=== PATIENT | female | born 1970 | race Caucasian/White ===

== ENCOUNTER 2024-03-15 14:45 | Emergency (ER) | payer OTHER, SELFPAY ==
[2024-03-15 14:51] VITALS: BP 161/86
[2024-03-15 15:06] VITALS: BMI 25.5
[2024-03-15 15:23] LABS: Hematocrit 37.4 % (37.0-47.0); Hemoglobin 13.4 g/dL (12.0-16.0); Mean Corp Hgb Conc. 35.8 g/dL (33.0-37.0); Mean Corpuscular Hgb 31.9 pg (27.0-31.0); Mean Platelet Volume 9.6 fL (7.4-10.4); Platelet Count 229 10^3/uL (130-400); Red Cell Dist. Width 12.1 % (11.5-14.5); White Blood Cell Count 5.8 10^3/uL (4.8-10.8)
[2024-03-15 15:41] LABS: ALT (SGPT) 16 U/L (0-35); AST (SGOT) 24 U/L (14-36); Albumin 4.4 g/dl (3.5-5.0); Alkaline Phosphatase 57 U/L (38-126); Blood Urea Nitrogen 20 mg/dl (7-17); Calcium 9.5 mg/dl (8.4-10.2); Carbon Dioxide 24 mmol/L (22-30); Chloride 104 mmol/L (98-107); Estimated Creatinine Clearance 62 ml/min; Glucose 115 mg/dl (70-99); Potassium 3.7 mmol/L (3.5-5.1); Sodium 138 mmol/L (135-145); Total Bilirubin 0.5 mg/dl (0.2-1.3); Total Protein 6.9 g/dl (6.3-8.2); eGFR > 60.00
--- NOTE | 2024-03-15 15:42 | ED.CVA ---
History of Present Illness
General
Chief Complaint: CVA/TIA Symptoms
Source: patient
Exam Limitations: none
Time Seen by Provider: 03/15/24 15:02
Onset of Stroke Symptoms
Onset of symptoms known: Yes
Date of onset of symptoms: 03/15/24
Time pt last seen normal is known: Yes
Date last time pt seen normal: 03/15/24
Travel History
Have you had any contact with someone who has COVID-19?: No
Do you have any symptoms of coronavirus? Fever > 100 degrees, chills, cough, shortness of breath, sore throat, loss of taste or smell, muscle aches, or headache?: No
History of Present Illness
History of Present Illness:
Patient presents emergency department with an episode of paresthesias in all 4 extremities. She has had 2 prior episodes in September and October. She followed up with a neurologist and had an MRI and an EEG which were unremarkable according to
the patient. She was diagnosed with possible essential tremor and prescribed propranolol. She took 1 today which seemed to help her symptoms.
Past History
Past History
ED Past Medical History: None
ED Past Surgical History: Cholecystectomy and
Social History
Tobacco: Non-smoker
Alcohol: None
Personal:
Living: with family
Employment: Employed
Family History
Family History: Other (Noncontributory)
Phy Exam
Physical Exam
Physical Exam:
GENERAL APPEARANCE: NAD, well developed/ well nourished
EYES lids/conjunctiva normal
EARS/NOSE/THROAT Mucous membranes moist, uvula midline without oral pharyngeal erythema, exudate or swelling
HEAD/NECK normocephalic atraumatic, neck is supple.
RESPIRATORY respiratory effort normal, speaks in full sentences, no accessory muscle use. Lungs clear to auscultation without rhonchi, wheezes, rales
CARDIAC Regular rate and rhythm, no edema.
ABDOMINAL Soft, ND/NT. No pulsatile masses on exam, rebound tenderness, Thurston sign or pain over Mcburney's point.
MUSCLES/EXTREMITIES No abnormal range of motion, no swelling.
SKIN Warm, pink and dry. No rashes
NEUROLOGICAL Speech is clear and appropriate. Normal level of consciousness. 5/5 strength in all extremities, occasional jerking motions in upper extremities, no tremor noted, no rigidity or hypertonia
PSYCH Normal mood and affect. Judgement/competence is appropriate
Course
Orders/Labs/Results
Orders:
Orders
03/15/24 15:08
EKG [Electrocardiogram (*1)] Urgent
Reason for Study: Other
Other Reason for Exam: cva/tia
03/15/24 15:09
EKG- Treatment ONCE
03/15/24 15:14
Complete Blood Count/No Diff Urgent
Comprehensive Metabolic Panel Urgent
03/15/24 15:48
CT Head W/o Iv Contrast Urgent
Comment:
Reason For Exam: parasthesias
Abnormal Lab Results
03/15/24
15:14
MCH 31.9 H pg
(27.0-31.0)
BUN 20 H mg/dl
(7-17)
Glucose 115 H mg/dl
(70-99)
03/15/24 15:14
03/15/24 15:14
Vital Signs
Initial and Last Documented VS:
Initial Vital Signs
Temp Pulse Resp BP Pulse Ox
97.4 F 72 17 161/86 99
03/15/24 14:51 03/15/24 14:51 03/15/24 14:51 03/15/24 14:51 03/15/24 14:51
Last Documented Vital Signs
Temp Pulse Resp BP Pulse Ox
97.4 F 72 17 161/86 99
03/15/24 14:51 03/15/24 14:51 03/15/24 14:51 03/15/24 14:51 03/15/24 14:51
*Critical Care Note
Total Time (30-74mins, 75-104mins- exclusive of procedures): Not Applicable
ED Attending Note
ED Attending Note
ED Attending Note:
This is a discussed case with on-call neurologist Dr. Garza. Given symptoms have resolved at this time with negative workup in the ER as well as negative MRI and EEG as an outpatient, no indication for admission and further workup at this time.
Recommend patient follows up as an outpatient for continued management and workup.
-
Portions of this chart may have been created with voice recognition software.� Occasional wrong word or��sound alike� substitutions may have occurred due to the inherent limitations of voice recognition software.
Discharge Plan
Departure
Patient Disposition: Home (Routine Discharge)
Date of Disposition: 03/15/24
Time of Disposition: 18:21
Patient with high blood pressure during this ER visit?: Yes
Condition: Good
Discharge Problem:
parasthesia
Instructions: Paresthesia (DC)
Prescriptions:
No Action
levofloxacin [Levaquin] 500 MG tablet
500 mg PO DAILY Qty: 6 0RF
metronidazole 500 MG tablet
500 mg PO TID Qty: 20 0RF
diphenoxylate-atropine 1 TABLET tablet
1 tab PO Q6HPRN PRN (Reason: diarrhea) Qty: 12 0RF
ondansetron 4 MG tablet,disintegrating
4 mg PO QIDPRN PRN (Reason: nausea/vomiting) Qty: 20 0RF
Referrals:
Dhruv Garza MD [Active] -
Amber Myers CRNP [Family Provider] -
Interventions
Interventions:
*Risk Screen - Suicide Last Done: 03/15/24 17:36
*General Assessment Last Done: 03/15/24 15:07
*Neglect/Abuse Screening Last Done: 03/15/24 17:36
*ED COVID-19 Vaccine History Last Done: 03/15/24 15:07
ED- Pulmonary Assessment Last Done: 03/15/24 16:00
ED- Neurological Assessment Last Done: 03/15/24 15:21
ED- Cardiac Assessment Last Done: 03/15/24 15:59
Discharge Date and Time
Print Language: [id number]
== END 2024-03-15 18:50 | disposition home or self-care (01) ==
LOC: EMR 14:45
PROVIDERS: Physician Assistant; EMERGENCY PHYSICIAN Emergency Medicine; FAMILY PHYSICIAN Nurse Practitioner Family
DX: R20.2 Paresthesia of skin (principal); Z90.49 Acquired absence of other specified parts of digestive tract
CPT/HCPCS: 99284; 70450; 80053; 85027; 93005

== ENCOUNTER → 2024-04-14 09:18 | Outpatient (REF) | payer OTHER, SELFPAY | LOC: HWRAD 09:18 | PROVIDERS: ATTENDING PHYSICIAN Nurse Practitioner Family | DX: H53.8 Other visual disturbances (principal) | CPT/HCPCS: 93880 ==